=== PATIENT | male | born 1950 | race Caucasian/White ===

== ENCOUNTER 2016-10-29 09:39 | Inpatient (IN) | payer MEDICARE ==
[2016-10-29] MEDS: Aspirin Low Dose CHEW TAB* 81 MG PO ONE ×2 (10:06→10:14)
[2016-10-29 10:19] LABS: Hematocrit 43 % (42-52); Hemoglobin 14.2 g/dl (14.0-18.0); Mean Corpuscular HGB Conc 33 g/dl (31-36); Mean Corpuscular Hemoglobin 30 pg (27-31); Mean Corpuscular Volume 89 fL (80-94); Mean Platelet Volume 9 um3 (7.4-10.4); Red Blood Count 4.77 10^6/ul (4.0-5.4); Red Cell Distribution Width 12 % (10.5-15); White Blood Count 11.6 10^3/ul (3.5-10.8)
[2016-10-29 10:35] LABS: Albumin 3.6 g/dL (3.2-5.2); BUN/Creatinine Ratio 23.9 (8-20); EGFR African American 80.2 (>60); EGFR Non-African American 62.4 (>60); Globulin 2.8 g/dL (2-4); Potassium 3.9 mmol/L (3.5-5.0); Total Bilirubin 0.8 mg/dL (0.2-1.0); Total Protein 6.4 g/dL (6.4-8.9); Troponin I 0.02 ng/mL (<0.04)
[2016-10-29] MEDS ORDERED: Iohexol 350* (CONTRAST) 500 ML MDV IV ONE (11:02)
--- NOTE | 2016-10-29 11:32 | RAD ---
INDICATION: Chest pain COMPARISON: Chest x-ray dated January 20, 2006 TECHNIQUE: Single AP portable view of the chest was obtained. FINDINGS: Image quality is compromised due to the relative inferiority of a portable chest x-ray. The heart and mediastinum exhibit normal size and contour. Mild atherosclerotic calcification is noted overlying the arch of the aorta, slightly progressed when compared to the 2006 chest x-ray. There is been interval appearance of blunting of the left costophrenic angle. The lungs are otherwise grossly clear. Visualized bones are normal for the patient's age. IMPRESSION: Interval appearance of left costophrenic angle blunting could be the consequence of pleural effusion or left lower lobe consolidation.
--- NOTE | 2016-10-29 13:15 | RAD ---
INDICATION: Right-sided chest pain x1 week COMPARISON: None TECHNIQUE: Axial source images were acquired following the administration of 75 mL Omnipaque [address] angiographic technique. Coronal and sagittal reconstructed images were constructed and reviewed. FINDINGS: There is partially occlusive thrombus in the right upper, middle and lower lobe pulmonary arteries extending into the segmental branches. The right mainstem bronchial artery and interlobular artery are patent. There is partially occlusive thrombus in both the left upper and lower lobes with extension into multiple segments. There are bibasilar hypoventilatory changes and small, left greater than right pleural effusions. Pleural-based densities at the dependent left lower lobe and to a lesser extent right lower lobe are seen which could be hypoventilatory change, atelectasis or the result of infarction in this clinical setting. The heart is normal in size. There is no evidence of pericardial effusion. There is no evidence of aortic aneurysm or dissection. Calcified atherosclerosis is noted at the aortic arch and descending thoracic aorta. There is no mediastinal, hilar, or axillary lymphadenopathy. Degenerative changes of the thoracic spine includes loss of intervertebral disc height and anterior marginal osteophyte formation. Limited views of the upper abdomen show no abnormalities. IMPRESSION: 1. Partially occlusive thrombus involving all 5 lobar arteries with extension into multiple pulmonary segments. Left greater than right lung base pleural-based densities could represent atelectasis or hypoventilatory change but could also represent zones of infarction in this clinical setting. 2. Small left greater than right pleural effusions. 3. Additional chronic and degenerative changes described in the body of the report. Pulmonary embolism findings reported to Dr. Rolle over the telephone at 1311 hours on October 29, 2016.
--- NOTE | 2016-10-29 13:28 | ED ---
Soumya Ferrari Michael, scribed for Julisa Rolle MD on 10/29/16 at 0952 . HPI Chest Pain - HPI Summary HPI Summary: 66 y/o male comes to the ED presenting with CP that started 2 days ago. The pt reports that the CP is located on the left ribs. The pain is aggravated with deep breathes, laying on the left side, and coughing. The pt states that the pain started in his right shoulder blade and moved to the left ribs. He describes the pain as an ache. The pt also c/o a productive cough producing sputum for one week, chills, and diaphoresis. He denies calf pain and traveling for longer than 6 hours. The PMHx is significant for HTN, but he does not take any HTN medication. He has no PE risk factors. - History of Current Complaint Chief Complaint: EDChestPainROMI Time Seen by Provider: 10/29/16 09:46 Hx Obtained From: Patient, Medical Records Onset/Duration: Started Days Ago, Still Present Timing: Constant Initial Severity: Moderate Current Severity: Moderate Pain Intensity: 6 Pain Scale Used: 0-10 Numeric Chest Pain Location: Left Lateral Chest Pain Radiates: No Character: Dull/Aching Aggravating Factor(s): Position, Deep Breaths, Other: - coughing Alleviating Factor(s): Nothing Associated Signs and Symptoms: Positive: Negative - calf pain, Chest Pain, Chills, Diaphoresis, Productive Cough - Allergy/Home Medications Allergies/Adverse Reactions: Allergies Allergy/AdvReac Type Severity Reaction Status Date / Time No Known Allergies Allergy Verified 10/29/16 09:41 Home Medications: Home Medications Aspirin [Aspirin 81 MG TAB] 81 mg PO DAILY 10/29/16 [History Confirmed 10/29/16] Ibuprofen [Eql Ibuprofen] 600 mg PO BID 10/29/16 [History Confirmed 10/29/16] Levothyroxine Sodium [Synthroid] 50 mcg PO DAILY 10/29/16 [History Confirmed ] PMH/Surg Hx/FS Hx/Imm Hx Endocrine/Hematology History: Reports: Hx Thyroid Disease - hypo Cardiovascular History: Reports: Hx Hypertension Infectious Disease History: No Infectious Disease History: Denies: Traveled Outside the [place] in Last 30 Days - Family History Known Family History: Positive: None Family History: pt hx of [place] before the age of 55. - Social History Occupation: Employed Full-time Lives: Alone Alcohol Use: Daily Hx Substance Use: No Substance Use Type: Reports: None Hx Tobacco Use: No Review of Systems Positive: Chills, Skin Diaphoresis Positive: Chest Pain Positive: Cough All Other Systems Reviewed And Are Negative: Yes Physical Exam Triage Information Reviewed: Yes Vital Signs On Initial Exam: Initial Vitals Temp Pulse Resp BP Pulse Ox 98.7 F 101 16 121/97 98 10/29/16 09:41 10/29/16 09:41 10/29/16 09:41 10/29/16 09:41 10/29/16 09:41 Vital Signs Reviewed: Yes Appearance: Positive: No Pain Distress, Ill-Appearing - mild Skin: Positive: Warm, Diaphoretic Eyes: Positive: EOMI, MARQUITA ENT: Positive: Pharynx normal, TMs normal Neck: Positive: Supple, Nontender Respiratory/Lung Sounds: Positive: Clear to Auscultation, Breath Sounds Present. Negative: Rales, Rhonchi, Wheezes Cardiovascular: Positive: Tachycardia, Other - no gallops. Negative: Murmur, Rub Abdomen Description: Positive: Nontender, Soft, Other: - no rebound. Negative: Guarding Bowel Sounds: Positive: Present Musculoskeletal: Positive: Other - left rib tenderness-mid axillary line 10-12. no calf tenderness. Neurological: Positive: Sensory/Motor Intact, Alert, Oriented to Person Place, Time, CN Intact II-III Psychiatric: Positive: Affect/Mood Appropriate Diagnostics - Vital Signs Vital Signs Temp Pulse Resp BP Pulse Ox 10/29/16 09:41 98.7 F 101 16 121/97 98 - Laboratory Lab Results: Lab Results 10/29/16 10/29/16 10/29/16 Range/Units 10:02 10:02 10:02 WBC 11.6 H (3.5-10.8) 10^3/ul RBC 4.77 (4.0-5.4) 10^6/ul Hgb 14.2 (14.0-18.0) g/dl Hct 43 (42-52) % MCV 89 (80-94) fL MCH 30 (27-31) pg MCHC 33 (31-36) g/dl RDW 12 (10.5-15) % Plt Count 176 (150-450) 10^3/ul MPV 9 (7.4-10.4) um3 Neut % (Auto) 77.4 (38-83) % Lymph % (Auto) 8.0 L (25-47) % [place] % (Auto) 13.3 H (1-9) % Eos % (Auto) 0.7 (0-6) % Baso % (Auto) 0.6 (0-2) % Absolute Neuts (auto) 9.0 H (1.5-7.7) 10^3/ul Absolute Lymphs (auto) 0.9 L (1.0-4.8) 10^3/ul Absolute Monos (auto) 1.5 H (0-0.8) 10^3/ul Absolute Eos (auto) 0.1 (0-0.6) 10^3/ul Absolute Basos (auto) 0.1 (0-0.2) 10^3/ul Absolute Nucleated RBC 0 10^3/ul Nucleated RBC % 0 D-Dimer, Quantitative (Less Than 230) ng/mL Sodium 137 (133-145) mmol/L Potassium 3.9 (3.5-5.0) mmol/L Chloride 106 (101-111) mmol/L Carbon Dioxide 24 (22-32) mmol/L Anion Gap 7 (2-11) mmol/L BUN 28 H (6-24) mg/dL Creatinine 1.17 (0.67-1.17) mg/dL Est GFR ( Amer) 80.2 (>60) Est GFR (Non-Af Amer) 62.4 (>60) BUN/Creatinine Ratio 23.9 H (8-20) Glucose 129 H (70-100) mg/dL Lactic Acid 0.6 (0.5-2.0) mmol/L Calcium 9.0 (8.6-10.3) mg/dL Total Bilirubin 0.80 (0.2-1.0) mg/dL AST 16 (13-39) U/L ALT 13 (7-52) U/L Alkaline Phosphatase 63 (34-104) U/L Troponin I 0.02 (<0.04) ng/mL Total Protein 6.4 (6.4-8.9) g/dL Albumin 3.6 (3.2-5.2) g/dL Globulin 2.8 (2-4) g/dL Albumin/Globulin Ratio 1.3 (1-3) Influenza A (Rapid) (Negative) Influenza B (Rapid) (Negative) 10/29/16 10/29/16 Range/Units 10:02 10:29 WBC (3.5-10.8) 10^3/ul RBC (4.0-5.4) 10^6/ul Hgb (14.0-18.0) g/dl Hct (42-52) % MCV (80-94) fL MCH (27-31) pg MCHC (31-36) g/dl RDW (10.5-15) % Plt Count (150-450) 10^3/ul MPV (7.4-10.4) um3 Neut % (Auto) (38-83) % Lymph % (Auto) (25-47) % [place] % (Auto) (1-9) % Eos % (Auto) (0-6) % Baso % (Auto) (0-2) % Absolute Neuts (auto) (1.5-7.7) 10^3/ul Absolute Lymphs (auto) (1.0-4.8) 10^3/ul Absolute Monos (auto) (0-0.8) 10^3/ul Absolute Eos (auto) (0-0.6) 10^3/ul Absolute Basos (auto) (0-0.2) 10^3/ul Absolute Nucleated RBC 10^3/ul Nucleated RBC % D-Dimer, Quantitative > 1050 H (Less Than 230) ng/mL Sodium (133-145) mmol/L Potassium (3.5-5.0) mmol/L Chloride (101-111) mmol/L Carbon Dioxide (22-32) mmol/L Anion Gap (2-11) mmol/L BUN (6-24) mg/dL Creatinine (0.67-1.17) mg/dL Est GFR ( Amer) (>60) Est GFR (Non-Af Amer) (>60) BUN/Creatinine Ratio (8-20) Glucose (70-100) mg/dL Lactic Acid (0.5-2.0) mmol/L Calcium (8.6-10.3) mg/dL Total Bilirubin (0.2-1.0) mg/dL AST (13-39) U/L ALT (7-52) U/L Alkaline Phosphatase (34-104) U/L Troponin I (<0.04) ng/mL Total Protein (6.4-8.9) g/dL Albumin (3.2-5.2) g/dL Globulin (2-4) g/dL Albumin/Globulin Ratio (1-3) Influenza A (Rapid) Negative (Negative) Influenza B (Rapid) Negative (Negative) Result Diagrams: 10/29/16 10:02 10/29/16 10:02 Lab Statement: Any lab studies that have been ordered have been reviewed, and results considered in the medical decision making process. - Radiology CXR Xray Interpretation: Positive (See Comments) - Interval appearance of left costophrenic angle blunting could be the consequence of pleural effusion or left lower lobe consolidation. Radiology Interpretation Completed By: Radiologist - CT CTA Thorax/Chest CT Interpretation: Positive (See Comments) - 1. Partially occlusive thrombus involving all 5 lobar arteries with extension into multiple pulmonary segments. Left greater than right lung base pleural-based densities could represent atelectasis or hypoventilatory change but could also represent zones of infarction in this clinical setting. 2. Small left greater than right pleural effusions. 3. Additional chronic and degenerative changes described in the body of the report. Pulmonary embolism findings reported to Dr. Rolle over the telephone at 1311 hours on October 29, 2016. CT Interpretation Completed By: Radiologist - EKG EK EKG Rhythm: Sinus Rhythm - [address] Segment: Normal Ectopy: None Chest Pain Course/Dx - Course Course Of Treatment: discussed patient care with Dr. Koch (Hospitalist) at 1315-pt will be admitted to [facility] [place].\. Pt with pleuritic cp initially as right sided posterior pain then left sided rib pain, he has multipe PE's on CT will be admitted - Diagnoses Provider Diagnoses: Pulmonary embolus Discharge - Discharge Plan Condition: Stable Disposition: ADMITTED TO [facility] Discharge Disposition Comment: pt accepted as admission by Dr. Koch Referrals: Eitan Tucker MD [Primary Care Provider] - The documentation as recorded by the Soumya hernandez Michael accurately reflects the service I personally performed and the decisions made by md, Julisa Rolle MD.
[2016-10-29] MEDS ORDERED: Morphine INJ* 2 MG/ML 1 ML CARPUJECT IV PRN (14:06)
[2016-10-29] MEDS ORDERED: oxyCODONE TAB* 5 MG TAB PO PRN (14:07)
[2016-10-29] MEDS ORDERED: LORazepam TAB(*) 1 MG PO SCH (15:00)
[2016-10-29 15:15] LABS: Troponin I 0.01 ng/mL (<0.04)
[2016-10-29] MEDS: Thiamine TAB* 100 MG TAB PO SCH (15:52)
[2016-10-29] MEDS: Heparin VIAL(*) 5000 UNITS/ML VIAL (FIVE THOUSAND) IV SCH (16:15)
[2016-10-29] MEDS: Heparin DRIP 25,000 UNITS(*) 25,000 UNITS/500 ML BAG IVPB SCH (16:16)
--- NOTE | 2016-10-29 17:07 | HP ---
CC: Dr. Tucker HISTORY AND PHYSICAL: DATE OF ADMISSION: 10/29/16 TIME OF EVALUATION: 1:40 p.m. PRIMARY CARE PROVIDER: Dr. Tucker. CHIEF COMPLAINT: Chest pain. HISTORY OF PRESENT ILLNESS: Mr. Delacruz is a 66-year-old male with a past medical history of hyper tension and hypothyroidism who presented to the emergency room with complaints of 1 week of chest pa in. The patient states he was in his usual state of health until [employer] Day. He states that he h ad 10 beers plus a shot of Silvio on that night and he felt that he had "drank too much." He was a ble to walk at home, but he was not feeling well and the next morning, he woke up with right-sided s ubscapular pleuritic chest pain, 5/10 intensity with no radiation. He thought that maybe he had hit his back or slept in a wrong position. He states that that pain resolved, but the next day he star lindsey to have pain in the left side of his ribs associated with cough and mild shortness of breath. A s the week went along, the pain persisted and continued to change locations, but always pleuritic in nature. He states that yesterday he tried to see his PCP, but they recommended he come to the [facility] room for further evaluation and he finally decided to come today. He denies fever, chills or diaphoresis, but he did have some tachycardia today when he had a coughin g fit. He denies any recent trips, recent surgeries, or any history of trauma or fall. He has not noticed any leg pain or edema. PAST MEDICAL HISTORY: 1. Hypothyroidism. 2. Diet treated hypertension. MEDICATIONS: 1. Aspirin 81 mg p.o. daily. 2. Ibuprofen 600 mg p.o. b.i.d. 3. Levothyroxine 50 mcg p.o. daily. ALLERGIES: No known drug allergies. FAMILY HISTORY: The patient's mother of congestive heart failure. His brother of an unkn own type of cancer. He states his father was on Coumadin, but he does not know the reason. SOCIAL HISTORY: The patient denies tobacco or drug use. He states that he usually drinks up to 6 b eers during the weekends, but this past weekend he had 10 beers and also a shot of [place]. He stat es that this is not routine for him and he denies having episodes of withdrawal in the past. The stover rrogate decision maker is his sister, Daisy Hillman, phone number is [phone]. REVIEW OF SYSTEMS: A 14-point review of systems was performed and all the pertinent negative and po sitive findings are in the HPI. PHYSICAL EXAMINATION GENERAL: The patient is a pleasant gentleman sitting up in bed in no acute distress. VITAL SIGNS: Temperature 98.7, heart rate is 70, respiratory rate is 17, oxygen saturation is 96% o n room air, blood pressure is 137/93. HEENT: Pupils are equal, reactive to light. Moist mucous membranes. CHEST: Breath sounds present bilaterally with bibasilar crackles, but no other added sounds. CVS: Normal S1, S2. Regular rate and rhythm. ABDOMEN: Soft, nontender, nondistended. Bowel sounds are present. EXTREMITIES: No edema. No calf tenderness. LABORATORY AND IMAGING DATA: The patient had a CBC that showed WBC of 11.6, hemoglobin of 14.2, he matocrit of 43, platelets of 176 with 77% neutrophils. D- dimer was greater than 1050. Chemistry s howed a sodium of 137, potassium of 3.9, chloride of 106, bicarb of 24, BUN of 28, creatinine of 1.1 7, glucose of 129, lactic acid of 0.6, calcium of 9. LFTs are normal. Troponin is 0.02. Influenza test was negative. EKG done on October 29 at 9:53 a.m. showed sinus rhythm at 80 beats per minute with no ST-T changes. No significant change when compared to his prior EKG from 2007. Chest x-ray showed left costophrenic angle blunting that could be the consequence of pleural effusio n or a left lower lobe consolidation. CTA of the chest showed partially occlusive thrombus involving all 5 lobar arteries with extension i nto multiple pulmonary segments. Left greater than right lung base pleural based densities could re present atelectasis or hypoventilatory change, but could also represent zones of infarction. Small left greater than right pleural effusions. ASSESSMENT AND PLAN: Mr. Delacruz is a 66-year-old male with a past medical history of diet-control led hypertension and hypothyroidism who presented to the emergency room with complaints of pleuritic chest pain, shortness of breath, found to have bilateral pulmonary embolism. 1. Bilateral pulmonary embolism: The patient has no recent trips, no recent surgery. There is no recent trauma, so there are no clear provoking factors at this time. He did drink more than usual o n [employer] Day and his symptoms started the next day, but he does not think he was down for a l brandon time after drinking. He will be admitted to the telemetry floor as inpatient. Although he has significant pulmonary embo lism on CTA, clinically he seems to be doing well with no tachycardia, normal blood pressure, and no rmal oxygen saturation on room air. I am going to check a lower extremity Doppler to assess for clot burden on lower extremities and an echocardiogram to assess his right ventricle function. For now, he will be started on a heparin drip and further decisions regarding anticoagulation and du ration of treatment will be made with the results of those tests. 2. Hypothyroidism: We will continue levothyroxine. Check TSH. 3. Alcohol use: The patient states that he usually has up to 6 beers over the weekend. He does no t drink every day and has not had withdrawal in the past. At this point, he is going to be started on a WAM protocol and we are going to monitor him. He will receive thiamine too. 4. Hypertension: The patient is not on any medications as an outpatient, we are going to continue to monitor. 5. DVT prophylaxis: The patient has a score of 5 on the DVT prophylaxis Risk Assessment Guide. He is already on a heparin drip and SCDs are not indicated at this time until we know for sure he does not have blood clots in the lower extremities. 6. Code status is full. TIME SPENT: Approximately 65 minutes was spent with the patient interview, medical records review, physical examination to complete this admission, more than half this time was spent [id number] wit h the patient in coordination of care. [id number]/[facility] #: [id number]
[2016-10-29 17:56] LABS: Hematocrit 43 % (42-52); Hemoglobin 14.4 g/dl (14.0-18.0); Mean Corpuscular HGB Conc 33 g/dl (31-36); Mean Corpuscular Hemoglobin 30 pg (27-31); Mean Corpuscular Volume 90 fL (80-94); Mean Platelet Volume 10 um3 (7.4-10.4); Red Blood Count 4.81 10^6/ul (4.0-5.4); Red Cell Distribution Width 13 % (10.5-15); White Blood Count 12.1 10^3/ul (3.5-10.8)
[2016-10-29] MEDS: Acetaminophen TAB* 325 MG PO PRN (20:48)
[2016-10-30 03:23] LABS: Hematocrit 39 % (42-52); Hemoglobin 13.2 g/dl (14.0-18.0); Mean Corpuscular HGB Conc 34 g/dl (31-36); Mean Corpuscular Hemoglobin 30 pg (27-31); Mean Corpuscular Volume 89 fL (80-94); Mean Platelet Volume 9 um3 (7.4-10.4); Red Blood Count 4.38 10^6/ul (4.0-5.4); Red Cell Distribution Width 13 % (10.5-15); White Blood Count 9.8 10^3/ul (3.5-10.8)
[2016-10-30 03:32] LABS: BUN/Creatinine Ratio 21.5 (8-20); Calcium 8.6 mg/dL (8.6-10.3); EGFR African American 126.2 (>60); EGFR Non-African American 98.1 (>60); Potassium 3.9 mmol/L (3.5-5.0)
[2016-10-30] MEDS: Heparin VIAL(*) 5000 UNITS/ML VIAL (FIVE THOUSAND) IV SCH (03:55)
[2016-10-30 04:09] LABS: TSH (Thyroid Stimulating Horm) 1.25 mcIU/mL (0.34-5.60)
[2016-10-30] MEDS: Levothyroxine TAB* 50 MCG TAB PO SCH (05:11)
[2016-10-30] MEDS: Acetaminophen TAB* 325 MG PO PRN ×2 (07:09→22:59)
[2016-10-30] MEDS: Thiamine TAB* 100 MG TAB PO SCH (08:09)
[2016-10-30] MEDS: Folic Acid TAB* 1 MG PO SCH (08:09)
[2016-10-30] MEDS: Multivitamins/Minerals TAB PO SCH (08:09)
--- NOTE | 2016-10-30 11:01 | ECHO ---
Patient: BRITTANY UMANZOR [facility] Rec#: [id number] : 1950 Date: 10/30/2016 Age: 66y Height: 182.9 cm / 72.0 in Weight: 97.5 kg / 214.9 lbs Sex: M BSA: 2.2 Room#: [facility] Admit Date#: 10/29/2016 Type: Inpatient Referring: Ros Fuentes MD Reading: Lg Hannah MD Joss House Keeper: Suzanne Bhatia RN RDCS CC: Eitan Tucker MD Transthoracic Echocardiogram Indication: Pulmonary emboli BP: 117/67 HR: 78 Rhythm: NSR with PVCs Findings History: HTN, hypothyroidism, ETOH use Technical Comments: The study is technically limited due to patient body habitus. Completed at 1035. Left Ventricle: The left ventricular chamber size is normal. There is no left ventricular hypertrophy. There is increased basal septal hypertrophy noted without evidence of an increased gradient across the left ventricular outflow tract. Global left ventricular wall motion and contractility are within normal limits. There is normal left ventricular systolic function.Mild septal flattening noted. The estimated ejection fraction is 55-60%. Possible subtle relative inferior inferoseptal hypokinesis which may be artifactual due to suboptimal imaging and dyssynchrony. Abnormal left ventricular diastolic filling is observed, consistent with impaired relaxation. Left Atrium: The left atrium is mildly dilated. Right Ventricle: Moderator Band present. The right ventricle is mildly dilated. The right ventricular global systolic function is mildly to moderately reduced. Right Atrium: The right atrium is mild to moderately dilated. Aortic Valve: The aortic valve is trileaflet. The aortic valve leaflets are mildly thickened. There is trace to mild aortic regurgitation. There is no evidence of aortic stenosis. Mitral Valve: There is mitral annular calcification. The mitral valve leaflets are mildly thickened. There is a trace of mitral regurgitation. There is no evidence of mitral stenosis. Tricuspid Valve: The tricuspid valve leaflets are normal. There is trace to mild tricuspid regurgitation. There is evidence of mild pulmonary hypertension. Pulmonic Valve: The pulmonic valve structure is not well visualized. There is mild to moderate pulmonic regurgitation. There is no pulmonic stenosis. Pericardium: There is no significant pericardial effusion. A pericardial fat pad is visualized. Aorta: There is mild dilatation of the ascending aorta. There is no dilatation of the aortic arch. There is no dilation of the aortic root. Pulmonary Artery: The main pulmonary artery is not well visualized. Venous: The venous system is not well visualized. The inferior vena cava is not visualized. Summary: There was not any prior study for comparison. Conclusions The study is technically limited due to patient body habitus. There is normal left ventricular systolic function.Mild septal flattening noted. The estimated ejection fraction is 55-60%. Possible subtle relative inferior inferoseptal hypokinesis which may be artifactual due to suboptimal imaging and dyssynchrony. The left atrium is mildly dilated. The right ventricle is mildly dilated. The right ventricular global systolic function is mildly to moderately reduced. There is trace to mild aortic regurgitation. The aortic valve leaflets are mildly thickened. There is a trace of mitral regurgitation. There is trace to mild tricuspid regurgitation. There is mild to moderate pulmonic regurgitation. There is mild dilatation of the ascending aorta. Measurements Name Value Normal Range RVIDd (AP) 2D 3.8 cm (0.9 - 2.6) RVDdMajor (2D) 4.2 cm (2.2 - 4.4) RAd ISD 4CH 6.1 cm (3.4 - 4.9) RA (A4C)W 4.1 cm (2.9 - 4.6) IVSd (2D) 0.9 cm (0.6 - 1) LVPWd (2D) 0.9 cm (0.6 - 1) LVIDd (2D) 4.3 cm (3.6 - 5.4) Aortic Annulus 2.5 cm (1.4 - 2.6) Ao root diameter (2D) 3.5 cm (2.1 - 3.5) Ascending Ao 3.5 cm (2.1 - 3.4) Aortic arch 2.6 cm (1.8 - 3.4) LA dimension (AP) 2D 3 cm (2.3 - 3.8) LAd ISD 4CH 5.8 cm (2.9 - 5.3) LA ISD 4CH W 3.3 cm (2.5 - 4.5) Name Value Normal Range LA ESV SP 4CH (A/L) 34 ml - LA ESV SP 2CH (A/L) 70 ml - LA ESV BP (A/L) 50 ml - LA ESV BP (A/L) index 23 ml/m2 - LA ESV SP 4CH (MOD) 32 ml - LA ESV SP 2CH (MOD) 67 ml - Name Value Normal Range MV E-wave Vmax 0.49 m/sec - MV deceleration time 236 msec - MV A-wave Vmax 0.76 m/sec - MV E:A ratio 0.6 ratio - LV septal e' Vmax 0.09 m/sec - LV lateral e' Vmax 0.13 m/sec - LV E:e' septal ratio 5.4 ratio - LV E:e' lateral ratio 3.8 ratio - Name Value Normal Range AV Vmax 1.7 m/sec - AV peak gradient 10 mmHg - LVOT Vmax 1.2 m/sec - JUAN M Vmax 0.68 m/sec - Name Value Normal Range TR Vmax 2.9 m/sec - TR peak gradient 34 mmHg - RAP 8 mmHg - RVSP 42 mmHg - Name Value Normal Range PV Vmax 0.84 m/sec -
[2016-10-30] MEDS: Heparin DRIP 25,000 UNITS(*) 25,000 UNITS/500 ML BAG IVPB SCH (11:42)
--- NOTE | 2016-10-30 13:00 | RAD ---
HISTORY: Widespread pulmonary emboli on CTA of the chest dated October 29, 2016 TECHNIQUE: Multiple transverse and longitudinal ultrasound images were obtained of the veins of the bilateral lower extremities using grayscale, color Doppler, and spectral Doppler imaging with and without compression and with augmentation. FINDINGS: VEINS: The common femoral vein, deep femoral vein, femoral vein and popliteal vein are compressible throughout their course, with normal flow on color Doppler imaging and normal response to augmentation on spectral Doppler imaging. SOFT TISSUES: Grossly normal. No large popliteal fossa cyst was identified. IMPRESSION: No sonographic evidence of deep vein thrombosis.
--- NOTE | 2016-10-30 14:49 | PN ---
Subjective Date of Service: 10/30/16 Interval History: HOSPITALIST PROGRESS NOTE Patient seen and examined at bedside. He feels well today. Still has pleuritic bilateral chest pain, denies dyspnea, but SO2 was 89-90% on RA. Family History: Unchanged from Admission Social History: Unchanged from Admission Past Medical History: Unchanged from Admission Objective Active Medications: Acetaminophen (Tylenol Tab*) 650 mg PO Q6H PRN PRN Reason: pain/fever Last Admin: 10/30/16 07:09 Dose: 650 mg Folic Acid (Folvite Tab*) 1 mg PO DAILY [facility] Last Admin: 10/30/16 08:09 Dose: 1 mg Heparin Sodium (Porcine) (Heparin Vial(*)) 0 units IV .PER PROTOCOL [facility] PRN Reason: Protocol Last Admin: 10/30/16 03:55 Dose: 3,550 units Heparin Sodium/Dextrose (Heparin Drip 25,000 Units(*)) 25,000 units in 500 mls @ 0 mls/hr IVPB .PER RATE CHAD; Per Protocol PRN Reason: Protocol Last Admin: 10/30/16 11:42 Dose: 31 mls/hr Levothyroxine Sodium (Synthroid Tab*) 50 mcg PO 0600 [facility] Last Admin: 10/30/16 05:11 Dose: 50 mcg Lorazepam (Ativan Tab(*)) 0 mg PO .PER WAM SCORE [facility] PRN Reason: Protocol Morphine Sulfate (Morphine Inj (Syringe)*) 2 mg IV Q4H PRN PRN Reason: Pain 6-10 Last Admin: 10/29/16 16:11 Dose: 2 mg Multivitamins/Minerals (Theragran/Minerals Tab*) 1 tab PO DAILY [facility] Last Admin: 10/30/16 08:09 Dose: 1 tab Oxycodone HCl (Roxycodone Tab*) 5 mg PO Q6H PRN PRN Reason: Pain 1-5 Thiamine HCl (Vitamin B-1 Tab*) 100 mg PO DAILY [facility] Last Admin: 10/30/16 08:09 Dose: 100 mg Vital Signs 10/30/16 10/30/16 10/30/16 02:11 04:05 08:00 Temperature 98.6 F 98.6 F Pulse Rate 81 49 Respiratory 16 16 16 Rate Blood Pressure 125/79 117/67 (mmHg) O2 Sat by Pulse 89 92 Oximetry Oxygen Devices in Use Now: None Appearance: Pleasant gentleman sitting up in bed in NAD. Eyes: No Scleral Icterus Ears/Nose/Mouth/Throat: Mucous Membranes Moist Neck: Trachea Midline Respiratory: Symmetrical Chest Expansion and Respiratory Effort, - - BS+ bilaterally with bibasilar crackles Cardiovascular: NL Sounds; No Murmurs; No JVD, RRR Abdominal: NL Sounds; No Tenderness; No Distention Extremities: No Edema Neurological: Alert and Oriented x 3, NL Muscle Strength and Tone Lines/Tubes/Other Access: Clean, Dry and Intact Peripheral IV Nutrition: Taking PO's Result Diagrams: 10/30/16 03:11 10/30/16 03:11 Assess/Plan/Problems-Billing Assessment: Mr. Mobley is a 66yo M with PMH of hypothyroidism, HTN, who presented to ED with c/o CP, found to have bilateral PE. - Patient Problems (1) Pulmonary embolism Comment: - LE doppler negative for DVT. - Echocardiogram showed mild RV dilatation. - Lengthy conversation with patient regarding anticoagulation options, risks and benefits - decision to transition from heparin drip to Eliquis. - SO2 remains grater than 90% even with exertion. (2) Atelectasis Comment: - Suspect his fever and crackles are associated with atelectasis and PE. - Check blood cultures, but no antibiotics for now. - Incentive spirometry. (3) Hypothyroidism Comment: - TSH 1.25. - Continue Levothyroxine. (4) DVT prophylaxis (5) Full code status Status and Disposition: Inpatient.
[2016-10-30] MEDS ORDERED: Heparin DRIP 25,000 UNITS(*) 25,000 UNITS/500 ML BAG IVPB SCH (15:28)
[2016-10-30] MEDS: Apixaban* 5 MG TAB PO SCH (20:36)
[2016-10-31] MEDS: Levothyroxine TAB* 50 MCG TAB PO SCH (05:04)
[2016-10-31 07:53] VITALS: BP 123/85
[2016-10-31] MEDS: Multivitamins/Minerals TAB PO SCH (09:07)
[2016-10-31] MEDS: Thiamine TAB* 100 MG TAB PO SCH (09:07)
[2016-10-31] MEDS: Apixaban* 5 MG TAB PO SCH (09:07)
[2016-10-31] MEDS: Folic Acid TAB* 1 MG PO SCH (09:07)
--- NOTE | 2016-11-01 00:49 | DS ---
DISCHARGE SUMMARY: DATE OF ADMISSION: 10/29/16 DATE OF DISCHARGE: 10/31/16 PRIMARY CARE PROVIDER: Eitan Tucker MD DISCHARGE DIAGNOSES: 1. Bilateral pulmonary embolism. 2. Atelectasis. SECONDARY DIAGNOSES: 1. Hypothyroidism. 2. Diet-controlled hypertension. MEDICATION LIST: 1. Levothyroxine 50 mcg p.o. daily. NEW MEDICATIONS: 1. Multivitamin 1 tablet p.o. daily. 2. Guaifenesin DM 10 mL p.o. q.6 hours p.r.n. cough. 3. Apixaban 5 mg p.o. b.i.d. 4. Tylenol 650 mg p.o. q.6 hours p.r.n. pain or fever. HOSPITAL COURSE: Mr. Delacruz is a 66-year-old male with a past medical history as stated above that presented to the emergency room with complaints of 1 week of progressive migratory chest pain associated with mild shortness of breath. For more details of the patient's presentation, I refer you to his history and physical. In the emergency room, the patient had a CTA of the chest that shows partially occlusive thrombus involving all 5 lobar arteries with extension to multiple pulmonary segments. Left greater than right lung base pleural based densities that could represent atelectasis or hypoventilatory change, that could also represent zones of infarction in the clinical setting. Small left greater than right pleural effusions. The patient was admitted under the impression of bilateral pulmonary embolism and he was initially started on a heparin drip. Further workup was performed including a transthoracic echocardiogram that showed normal left ventricular systolic function with mild septal flattening noted. Ejection fraction of 55% to 60%. Possible relative inferior hypokinesis , which maybe artifactual due to suboptimal imaging and dyssynchrony. The right ventricle was mildly dilated and the right ventricle global systolic function is mildly-to- moderately reduced. There is [id number] tricuspid regurgitation, mild-to- moderate pulmonic regurgitation. Lower extremity Doppler showed no sonographic evidence of deep vein thrombosis. Despite his significant PE, the patient did not have much symptoms. He is major complaining of pain, but he did not have significant shortness of breath. He did not require supplemental oxygen. His vital signs remained stable with no significant tachycardia and with normal blood pressure. Thrombolytics are not indicated in this case. I discussed at length with the patient, his options of anticoagulation including warfarin, Lovenox, and a new oral anticoagulation agent. After reviewing risks and benefits, we elected to treat him with Eliquis. The patient is aware of the risks and benefits including, but not limited to significant bleeding. The patient had symptomatic improvement and was thought to be stable for discharge at this time. PHYSICAL EXAMINATION: General: The patient is a pleasant gentleman, sitting up in a chair, in no acute distress. Vital Signs: Temperature 98.0, heart rate is 80, respiratory rate is 16, oxygen saturation 97% on room air, and blood pressure is 123/85. HEENT: Pupils are equal. Moist mucous membranes. CVS: Normal S1, S2. Regular rate and rhythm. Chest: Breath sounds present bilaterally with no added sounds. Abdomen: Soft. Bowel sounds present. Extremities: No edema. Neuro: He is alert, awake, and oriented x3. Able to move all 4 extremities. DIET: Low-salt diet. ACTIVITIES: As tolerated. The patient is advised to avoid significant exertion. DISPOSITION: To home. STATUS IN THE HOSPITAL: Inpatient. Please keep in mind that this is summarized version of the patient's hospital stay. If you need more information, please feel free to call me at or please obtain the full medical records. The patient was encouraged to keep his appointment with Dr. Tucker on November 07 at 1 p.m. TIME SPENT: Approximately 45 minutes was spent to complete this discharge. CC: Dr. Tucker * [id number]/CPS #: [id number]
== END 2016-10-31 10:25 | disposition home or self-care (01) | DRG 176 ==
LOC: ED 09:39 → MEDTELE 13:19
PROVIDERS: ADMIT Internal Medicine; ATTEND Internal Medicine
DX: I26.99 Other pulmonary embolism without acute cor pulmonale (principal); I10 Essential (primary) hypertension; J98.11 Atelectasis; E03.9 Hypothyroidism, unspecified; Z79.82 Long term (current) use of aspirin; Z79.899 Other long term (current) drug therapy; Z82.49 Family history of ischemic heart disease and other diseases of the circulatory system
CPT/HCPCS: 36415; 71010; 71275; 80048; 80053; 83605; 84443; 84484; 84520; 85025; 85379; 85730; 87040; 87502; 93005; 93306; 93970; A9270-GY; J1644; J2270; Q9967

== ENCOUNTER → 2017-11-14 09:25 | Day surgery (SDC) | payer MEDICARE, OTHER ==
[~2017-11-14 09:25] MED LIST: Buffered Lidocaine 0.9% SYRIN* 5 ML/SYR SYRINGE INTRADERM ONE; Buffered Lidocaine 0.9% SYRIN* 5 ML/SYR SYRINGE ONE; Bupivacaine 0.25% SDV* 30 ML ONE; Dexamethasone IV* 4 MG/ML 1 ML (4 MG) IV SLOW PU ONE; Dexamethasone IV* 4 MG/ML 1 ML (4 MG) ONE; Famotidine IV* 10 MG/ML 2 ML (20 mg) IV ONE; Famotidine TAB* 20 MG ONE; Lidocain 1% EPI 1:100,000 * 30 ML MDV ONE; Midazolam* 1 MG/ML 5 ML VIAL (5 MG) ONE; Naloxone* 0.4 MG/ML 1 ML VIAL IV PRN; Ondansetron INJ* 2 MG/ML VIAL ONE; Propofol* 10 MG/ML 20 ML BTL IV PUSH ONE; ceFAZolin 2 GM PREMIX (*) 2 GM/50 ML BAG IVPB ONE; fentaNYL* 50 MCG/ML 2 ML VIAL (100 MCG VIAL) ONE
[2017-11-14 14:58] VITALS: BP 118/82
== END | disposition home or self-care (01) ==
LOC: OR 09:25
PROVIDERS: ATTEND Plastic Surgery
DX: C44.329 Squamous cell carcinoma of skin of other parts of face (principal); E03.9 Hypothyroidism, unspecified; Z86.711 Personal history of pulmonary embolism; Z79.01 Long term (current) use of anticoagulants; I10 Essential (primary) hypertension; M50.30 Other cervical disc degeneration, unspecified cervical region; Z87.891 Personal history of nicotine dependence
CPT/HCPCS: 88305; 88329; A9270-GY; J0690; J1100; J2250; J2405; J2704; J3010

== ENCOUNTER → 2019-02-14 08:08 | Day surgery (SDC) | payer MEDICARE, OTHER ==
[~2019-02-14 08:08] MED LIST changes: -Buffered Lidocaine 0.9% SYRIN* 5 ML/SYR SYRINGE INTRADERM ONE; -Buffered Lidocaine 0.9% SYRIN* 5 ML/SYR SYRINGE ONE; +Buffered Lidocaine 1% SYRIN* 1 ML/SYRINGE INTRADERM ONE; +Bupivacaine 0.25% SDV PF* 10 ML VIAL INJ ONE; -Bupivacaine 0.25% SDV* 30 ML ONE; -Dexamethasone IV* 4 MG/ML 1 ML (4 MG) IV SLOW PU ONE; -Dexamethasone IV* 4 MG/ML 1 ML (4 MG) ONE; -Famotidine IV* 10 MG/ML 2 ML (20 mg) IV ONE; -Famotidine TAB* 20 MG ONE; +Lactated Ringers 1000 ML Bag* 1,000 ML IV SCH; -Lidocain 1% EPI 1:100,000 * 30 ML MDV ONE; +Lidocaine 1% INJ* 10 MG/ML 30 ML SDV ONE; +Lidocaine 1% w EPI 1:100,000* 30 ML VIAL ONE; +Lidocaine 2% PF * 5 ML VIAL ONE; +Mineral Oil Sterile, TOPICAL* 25 ML BTL ONE; -Ondansetron INJ* 2 MG/ML VIAL ONE; -Propofol* 10 MG/ML 20 ML BTL IV PUSH ONE; +Propofol* 10 MG/ML 20 ML BTL ONE; -ceFAZolin 2 GM PREMIX (*) 2 GM/50 ML BAG IVPB ONE; +ceFAZolin 2 GM in NS PREMIX(*) 2 GM/100 ML BAG IVPB ONE
[2019-02-14 11:55] VITALS: BP 130/92
== END | disposition home or self-care (01) ==
LOC: OR 08:08
PROVIDERS: ATTEND Plastic Surgery
DX: C44.311 Basal cell carcinoma of skin of nose (principal); C43.59 Malignant melanoma of other part of trunk; I10 Essential (primary) hypertension; E03.9 Hypothyroidism, unspecified; Z86.711 Personal history of pulmonary embolism; Z79.01 Long term (current) use of anticoagulants; M19.90 Unspecified osteoarthritis, unspecified site; R05 Cough
CPT/HCPCS: 88305; 88331; 88332; A9270-GY; J0690; J2250; J2704; J3010; J3490

== ENCOUNTER 2021-03-19 07:46 | Inpatient (IN) ==
[~2021-03-19 07:46] MED LIST changes: +Buffered Lidocaine 1% SYRIN 1 ml INTRADERM ONE; -Buffered Lidocaine 1% SYRIN* 1 ML/SYRINGE INTRADERM ONE; -Bupivacaine 0.25% SDV PF* 10 ML VIAL INJ ONE; -Lactated Ringers 1000 ML Bag* 1,000 ML IV SCH; +Lactated Ringers 1000 ml BAG 1,000 ML IV SCH; -Lidocaine 1% INJ* 10 MG/ML 30 ML SDV ONE; -Lidocaine 1% w EPI 1:100,000* 30 ML VIAL ONE; -Lidocaine 2% PF * 5 ML VIAL ONE; -Midazolam* 1 MG/ML 5 ML VIAL (5 MG) ONE; -Mineral Oil Sterile, TOPICAL* 25 ML BTL ONE; -Naloxone* 0.4 MG/ML 1 ML VIAL IV PRN; -Propofol* 10 MG/ML 20 ML BTL ONE; -ceFAZolin 2 GM in NS PREMIX(*) 2 GM/100 ML BAG IVPB ONE; -fentaNYL* 50 MCG/ML 2 ML VIAL (100 MCG VIAL) ONE
[2021-03-19] MEDS ORDERED: Lidocaine 1% w EPI 1:100,000 MDV 20 ML VIAL ONE (09:52)
[2021-03-19] MEDS ORDERED: Bacitracin OINTMENT TUBE ONE (09:52)
[2021-03-19] MEDS ORDERED: Lidocaine 2% PF 5 ML VIAL ONE (10:22)
[2021-03-19] MEDS ORDERED: Midazolam 2 mg/2 ml VIAL 1 mg/ml 2 ml VIAL (2 mg) ONE (10:22)
[2021-03-19] MEDS ORDERED: Propofol 10 MG/ML 20 ML BTL ONE (10:22)
[2021-03-19] MEDS ORDERED: fentaNYL 250 mcg/5 ml 50 MCG/ML 5 ml VIAL (250 MCG) ONE (10:22)
[2021-03-19] MEDS ORDERED: Rocuronium 50 mg VIAL 10 mg/ml 5 ml VIAL (50 mg) ONE (10:24)
[2021-03-19] MEDS ORDERED: EPHEDrine (Pressors) 50 MG/ML VIAL ONE (11:20)
[2021-03-19] MEDS ORDERED: Dexamethasone IV 4 MG/ML VIAL 1 ml VIAL ONE (11:28)
[2021-03-19] MEDS ORDERED: Ondansetron 4 mg VIAL 2 MG/ML 2 ml VIAL ONE (14:23)
[2021-03-19] MEDS ORDERED: HYDROmorphone 1 MG/1 ML SYRINGE ONE (14:35)
[2021-03-19] MEDS ORDERED: Naloxone 0.4 mg VIAL 0.4 mg/ml 1 ml VIAL IV PRN (15:06)
[2021-03-19] MEDS ORDERED: HYDROmorphone 1 MG/1 ML SYRINGE IV PRN (15:06)
[2021-03-19] MEDS ORDERED: Prochlorperazine 5 mg/ml 2 ml VIAL (10 mg) IV PRN (15:06)
[2021-03-19] MEDS ORDERED: oxyCODONE 5 mg/5 ml ORAL.SOLN UDC PO PRN (16:49)
[2021-03-19] MEDS: oxyCODONE 5 mg/5 ml ORAL.SOLN UDC PO PRN ×2 (17:13→22:24)
[2021-03-19] MEDS ORDERED: Bacitracin OINTMENT TUBE TOPICAL SCH (21:00)
[2021-03-20 08:11] VITALS: BP 134/85
[2021-03-20] MEDS ORDERED: Polyethylene Glycol 3350 17 GM PACKET PO ONE (11:10)
== END 2021-03-20 10:57 | disposition home or self-care (01) | DRG 142 ==
LOC: AA 07:46 → SUATTDRO 07:46 → EDSTATUS 10:00 → SSU 16:17
PROVIDERS: ADMIT Otolaryngology; ATTEND Hospitalist